=== PATIENT | female | born 1950 | race Caucasian/White ===

== ENCOUNTER 2019-06-23 23:55 | Emergency (ER) | payer MEDICARE ==
--- NOTE | 2019-06-24 00:31 | ERPHSYRPT ---
- History of Present Illness Time Seen by Provider: 06/24/19 00:20 Historian: patient Exam Limitations: no limitations Patient Subjective Stated Complaint: Abdominal pain Triage Nursing Assessment: Patient brought back to ED via w/c and transferred to bed with assist of 1. Patient A+O X 3. Patient's skin pink, warm and dry. Patient complains of abdominal pain intermittent sharp and stabbing pain for 2 months. Patient states she has seen so many doctors for this issue but gets tired of the doctors so she quits going and trys to ignore the abdominal pain. Patient's abdomen round and soft with BS X 4. Patient denies N/V or diarrhea. Patient states last BM 06/21/19 and she has a hx of constipation. Physician History: 69 y/o white female presents with 2 month h/o generalized abd pain. no n/v/d. pt s/p cholecystectomy. pt denies cp, denies soa Timing/Duration: week(s) (8) Quality: fullness, pressure Abdominal Pain Onset Location: generalized abdomen Pain Radiation: no radiation Severity of Pain-Max: mild Severity of Pain-Current: mild Modifying Factors: Improves With: palpation. Worsens With: coughing, defecating , vomiting Associated Symptoms: No back, No chest pain, No diarrhea, No fever/chills, No nausea, No shortness of breath, No vomiting Previous symptoms: same symptoms as today Allergies/Adverse Reactions: No Known Drug Allergies Allergy (Verified 06/24/19 00:03) Home Medications: Albuterol Sulfate [Albuterol Sulfate Hfa] 8.5 gm IH QID 06/19/13 [History] Atorvastatin Calcium [Lipitor] 20 mg PO DAILY 06/19/13 [History] Clopidogrel Bisulfate 75 mg [PLAVIX 75 MG Tablet] 75 mg PO DAILY 06/19/13 [History] Cyanocobalamin (Vitamin B-12) [Vitamin B-12] 500 mcg PO DAILY 06/19/13 [History] Ergocalciferol (Vitamin D2) [Vitamin D] 50,000 unit PO WEEKLY 06/19/13 [History] Fenofibrate,Micronized 145 mg* [Tricor 145 MG] 145 mg PO DAILY 06/19/13 [ History] Fluticasone/Salmeterol [Advair Hfa 115-21 Mcg Inhaler] 8 gm IH BID 06/19/13 [ History] Insulin Glargine [Lantus Insulin] 10 unit SQ TID 06/19/13 [History] Multivits W-Fe,Other Min/Lut [Centrum Silver Ultra Women Tab] 1 each PO DAILY [History] Niacin 100 mg PO DAILY 06/19/13 [History] Nitroglycerin 0.4 mg Tablet [Nitrostat 0.4 MG Tablet] 0.4 mg SL UD [History] Alendronate Sodium [Fosamax] 70 mg PO WEEKLY 03/29/18 [History] Amitriptyline HCl 25 mg [Elavil 25 mg] 25 mg PO HS 03/29/18 [History] Aspirin 81 mg PO DAILY 03/29/18 [History] Famotidine 10 mg PO DAILY 03/29/18 [History] Fluoxetine HCl [Prozac] 40 mg PO DAILY 03/29/18 [History] Isosorbide Mononitrate 30 mg [Imdur 30 MG] 30 mg PO DAILY 03/29/18 [History ] Levothyroxine Sodium [Unithroid] 175 mcg PO DAILY 03/29/18 [History] Liraglutide [Victoza 2-Osvaldo] 40 units SQ DAILY 03/29/18 [History] Metformin HCl 500 mg [Glucophage 500 MG] 500 mg PO DAILY 03/29/18 [History ] Methocarbamol 500 mg [Robaxin 500 MG] 500 mg PO TID 03/29/18 [History] Montelukast Sodium 10 mg [Singulair 10 MG] 10 mg PO DAILY 03/29/18 [History] PANTOPRAZOLE 40 mg Tablet [Protonix 40MG Tablet] 40 mg PO QAM 03/29/18 [ History] Sacubitril/Valsartan [Entresto 24 mg-26 mg Tablet] 1 each PO BID 03/29/18 [ History] Hx Tetanus, Diphtheria Vaccination/Date Given: Yes (UNKNOWN) Hx Influenza Vaccination/Date Given: Yes Hx Pneumococcal Vaccination/Date Given: Yes Immunizations Up to Date: Yes - Review of Systems Constitutional: No Symptoms Eyes: No Symptoms Ears, Nose, & Throat: No Symptoms Respiratory: No Symptoms Cardiac: No Symptoms Abdominal/Gastrointestinal: Abdominal Pain, No Nausea, No Vomiting, No Diarrhea , No Constipation Genitourinary Symptoms: No Symptoms Musculoskeletal: No Symptoms Skin: No Symptoms Neurological: No Symptoms Psychological: No Symptoms Endocrine: No Symptoms Hematologic/Lymphatic: No Symptoms Immunological/Allergic: No Symptoms All Other Systems: Reviewed and Negative - Past Medical History Pertinent Past Medical History: Yes Neurological History: Migraines ENT History: No Pertinent History Cardiac History: Angina, Coronary Artery Disease, Myocardial Infarction ([place]), Peripheral Vascular Disease Respiratory History: No Pertinent History Endocrine Medical History: Diabetes Type II Musculoskeletal History: Arthritis, Fractures GI Medical History: No Pertinent History History: No Pertinent History Psycho-Social History: Depression Female Reproductive Disorders: No Pertinent History, Cervical Cancer - Past Surgical History Past Surgical History: Yes Neuro Surgical History: No Pertinent History Cardiac: CABG, Cardiac Catheterization, Cardiac Stent, Vascular Surgery Respiratory: No Pertinent History Gastrointestinal: Cholecystectomy Genitourinary: No Pertinent History Musculoskeletal: No Pertinent History Female Surgical History: Hysterectomy - Social History Smoking Status: Current every day smoker How long have you smoked: years Exposure to second hand smoke: Yes Drug Use: none Patient Lives Alone: No - Female History Hx Last Menstrual Period: Hysterectomy Hx Now: No - Nursing Vital Signs Nursing Vital Signs: Initial Vital Signs Temperature 98.0 F 06/24/19 00:04 Pulse Rate 85 06/24/19 00:04 Respiratory Rate 18 06/24/19 00:04 Blood Pressure 123/70 06/24/19 00:04 O2 Sat by Pulse Oximetry 95 06/24/19 00:04 Pain Scale Pain Intensity 7 - Physical Exam General Appearance: mild distress, alert, anxiety Eye Exam: PERRL/EOMI, eyes nml inspection Ears, Nose, Throat Exam: normal ENT inspection, moist mucous membranes Neck Exam: normal inspection, non-tender, supple, full range of motion Respiratory Exam: normal breath sounds, lungs clear, airway intact, No chest tenderness, No respiratory distress Cardiovascular Exam: regular rate/rhythm, normal heart sounds, normal peripheral pulses Gastrointestinal/Abdomen Exam: soft, normal bowel sounds, tenderness (mild diffuse), No distention, No mass, No guarding, No rebound Pelvic Exam: not done Rectal Exam: not done Back Exam: normal inspection, normal range of motion, vertebral tenderness, No CVA tenderness Extremity Exam: normal inspection, normal range of motion, pelvis stable Neurologic Exam: alert, oriented x 3, cooperative, barrow worker II-XII nml as tested Skin Exam: normal color, warm, dry Lymphatic Exam: No adenopathy SpO2 Interpretation: normal SpO2: 95 O2 Delivery: Room Air - Course Nursing assessment & vital signs reviewed: Yes Ordered Tests: Active Orders 24 hr Category Date Time Status IV Insertion STAT Care 06/24/19 00:31 Active ABDOMEN AND PELVIS W/0 CONTRAS [CT] Stat Exams 06/24/19 00:50 Taken AMYLASE Stat Lab 06/24/19 00:30 Completed CBC W DIFF Stat Lab 06/24/19 00:30 Completed CMP Stat Lab 06/24/19 00:30 Completed LIPASE Stat Lab 06/24/19 00:30 Completed Lactic Acid Stat Lab 06/24/19 00:50 Completed Lactic Acid Stat Lab 06/24/19 03:08 Results UA W/RFX UR CULTURE Stat Lab 06/24/19 00:30 Completed Medication Summary Discontinued Medications Generic Name Dose Route Start Last Admin Trade Name Lisette PRN Reason Stop Dose Admin Sodium Chloride 500 mls @ 500 mls/hr 06/24/19 02:27 06/24/19 03:53 Sodium Chloride 0.9% 500 Ml IV 06/24/19 03:26 Infused .Q1H ONE Infusion Sodium Chloride Confirm 06/24/19 02:31 Sodium Chloride 0.9% 500 Ml Administered 06/24/19 02:32 Dose 500 mls @ ud IV .STK-MED ONE Morphine Sulfate 2 mg 06/24/19 02:26 06/24/19 02:37 Morphine Sulfate 2 Mg Inj IV 06/24/19 02:27 2 mg STAT ONE Administration Morphine Sulfate Confirm 06/24/19 02:31 Morphine Sulfate 2 Mg Inj Administered 06/24/19 02:32 Dose 2 mg .ROUTE .STK-MED ONE Ondansetron HCl 4 mg 06/24/19 02:26 06/24/19 02:37 Zofran 4 Mg/2 Ml Vial IV 06/24/19 02:27 4 mg STAT ONE Administration Ondansetron HCl Confirm 06/24/19 02:30 Zofran 4 Mg/2 Ml Vial Administered 06/24/19 02:31 Dose 4 mg .ROUTE .STK-MED ONE Lab/Rad Data: Laboratory Result Diagrams 06/24/19 00:30 06/24/19 00:30 Laboratory Results 06/24/19 06/24/19 06/24/19 Range/Units 03:08 00:50 00:30 WBC (4.0-10.5) K/mm3 RBC (4.1-5.4) M/mm3 Hgb (12.0-16.0) gm/dl Hct (35-47) % MCV (78-100) fl MCH (26-32) pg MCHC (32-36) g/dl RDW (11.5-14.0) % Plt Count (150-450) K/mm3 MPV (6-9.5) fl Gran % (36.0-66.0) % Eos # (Auto) (0-0.5) Absolute Lymphs (auto) (1.0-4.6) Absolute Monos (auto) (0.0-1.3) Lymphocytes % (24.0-44.0) % Monocytes % (0.0-12.0) % Eosinophils % (0.00-5.0) % Basophils % (0.0-0.4) % Absolute Granulocytes (1.4-6.9) Basophils # (0-0.4) Sodium (137-145) mmol/L Potassium (3.5-5.1) mmol/L Chloride (98-107) mmol/L Carbon Dioxide (22-30) mmol/L Anion Gap (5-15) MEQ/L BUN (7-17) mg/dL Creatinine (0.52-1.04) mg/dL Estimated GFR ML/MIN Glucose (74-106) mg/dL Lactic Acid 2.4 H 3.0 H (0.4-2.0) Calcium (8.4-10.2) mg/dL Total Bilirubin (0.2-1.3) mg/dL AST (14-36) U/L ALT (0-35) U/L Alkaline Phosphatase (38-126) U/L Serum Total Protein (6.3-8.2) g/dL Albumin (3.5-5.0) g/dL Amylase (30-110) U/L Lipase (23-300) U/L Urine Color STRAW (YELLOW) Urine Appearance CLEAR (CLEAR) Urine pH 6.0 (5-6) Ur Specific [place] 1.005 (1.005-1.025) Urine Protein NEGATIVE (Negative) Urine Ketones NEGATIVE (NEGATIVE) Urine Blood NEGATIVE (0-5) Lucas/ul Urine Nitrite NEGATIVE (NEGATIVE) Urine Bilirubin NEGATIVE (NEGATIVE) Urine Urobilinogen NEGATIVE (0-1) mg/dL Ur Leukocyte Esterase NEGATIVE (NEGATIVE) Urine WBC (Auto) NONE (0-5) /HPF Urine RBC (Auto) NONE (0-2) /HPF U Epithel Cells (Auto) RARE (FEW) /HPF Urine Bacteria (Auto) NONE (NEGATIVE) /HPF Urine Mucus (Auto) SLIGHT (NEGATIVE) /HPF Urine Culture Reflexed NO (NO) Urine Glucose NEGATIVE (NEGATIVE) mg/dL 06/24/19 06/24/19 Range/Units 00:30 00:30 WBC 8.5 (4.0-10.5) K/mm3 RBC 4.12 (4.1-5.4) M/mm3 Hgb 12.4 (12.0-16.0) gm/dl Hct 39.0 (35-47) % MCV 94.7 (78-100) fl MCH 30.1 (26-32) pg MCHC 31.8 L (32-36) g/dl RDW 17.3 H (11.5-14.0) % Plt Count 339 (150-450) K/mm3 MPV 10.4 H (6-9.5) fl Gran % 62.4 (36.0-66.0) % Eos # (Auto) 0.17 (0-0.5) Absolute Lymphs (auto) 2.34 (1.0-4.6) Absolute Monos (auto) 0.63 (0.0-1.3) Lymphocytes % 27.6 (24.0-44.0) % Monocytes % 7.4 (0.0-12.0) % Eosinophils % 2.0 (0.00-5.0) % Basophils % 0.6 (0.0-0.4) % Absolute Granulocytes 5.28 (1.4-6.9) Basophils # 0.05 (0-0.4) Sodium 138 (137-145) mmol/L Potassium 3.8 (3.5-5.1) mmol/L Chloride 101 (98-107) mmol/L Carbon Dioxide 26 (22-30) mmol/L Anion Gap 14.0 (5-15) MEQ/L BUN 11 (7-17) mg/dL Creatinine 0.82 (0.52-1.04) mg/dL Estimated GFR > 60.0 ML/MIN Glucose 181 H (74-106) mg/dL Lactic Acid (0.4-2.0) Calcium 9.5 (8.4-10.2) mg/dL Total Bilirubin 0.30 (0.2-1.3) mg/dL AST 24 (14-36) U/L ALT 12 (0-35) U/L Alkaline Phosphatase 87 (38-126) U/L Serum Total Protein 7.8 (6.3-8.2) g/dL Albumin 4.5 (3.5-5.0) g/dL Amylase 93 (30-110) U/L Lipase 80 (23-300) U/L Urine Color (YELLOW) Urine Appearance (CLEAR) Urine pH (5-6) Ur Specific [place] (1.005-1.025) Urine Protein (Negative) Urine Ketones (NEGATIVE) Urine Blood (0-5) Lucas/ul Urine Nitrite (NEGATIVE) Urine Bilirubin (NEGATIVE) Urine Urobilinogen (0-1) mg/dL Ur Leukocyte Esterase (NEGATIVE) Urine WBC (Auto) (0-5) /HPF Urine RBC (Auto) (0-2) /HPF U Epithel Cells (Auto) (FEW) /HPF Urine Bacteria (Auto) (NEGATIVE) /HPF Urine Mucus (Auto) (NEGATIVE) /HPF Urine Culture Reflexed (NO) Urine Glucose (NEGATIVE) mg/dL - Progress Progress: improved, re-examined Progress Note: 06/24/19 04:20 pts pain sig improved. ct scan abd/pelvis-no acute process. no cp, no soa. 06/24/19 04:21 Counseled pt/family regarding: lab results, diagnosis, need for follow-up, rad results - Departure Departure Disposition: Home Clinical Impression: Abdominal pain Condition: Stable Critical Care Time: No Referrals: LYNNE SCHNEIDER [Primary Care Provider] - Additional Instructions: clear to full liquid diet. folllow up with primary doctor for further management. return to ED if symptoms worsen
[2019-06-24 00:49] LABS: BASOPHIL % 0.6 % (0.0-0.4); Basophil (Absolute #) 0.05 (0-0.4); Eosinophil (Absolute #) 0.17 (0-0.5); Granulocyte Absolute (ANC) 5.28 (1.4-6.9); Granulocytes % 62.4 % (36.0-66.0); Hemoglobin 12.4 gm/dl (12.0-16.0); Lymphocyte (Absolute #) 2.34 (1.0-4.6); Lymphocytes % 27.6 % (24.0-44.0); Mean Cell Volume 94.7 fl (78-100); Mean Corpuscular Hemoglobin 30.1 pg (26-32); Mean Corpuscular Hgb Concent. 31.8 g/dl (32-36); Mean Platelet Volume 10.4 fl (6-9.5); Monocyte (Absolute #) 0.63 (0.0-1.3); Monocytes % 7.4 % (0.0-12.0); Platelet Count 339 K/mm3 (150-450); Red Blood Count 4.12 M/mm3 (4.1-5.4); Red Cell Distribution Width 17.3 % (11.5-14.0); White Blood Count 8.5 K/mm3 (4.0-10.5)
[2019-06-24 00:53] LABS: ALBUMIN 4.5 g/dL (3.5-5.0); ALKALINE PHOSPHATASE 87 U/L (38-126); AMYLASE 93 U/L (30-110); BLOOD UREA NITROGEN 11 mg/dL (7-17); CHLORIDE 101 mmol/L (98-107); Calcium 9.5 mg/dL (8.4-10.2); Carbon Dioxide 26 mmol/L (22-30); Creatinine 1 0.82 mg/dL (0.52-1.04); Glucose 181 mg/dL (74-106); LIPASE 80 U/L (23-300); Potassium 3.8 mmol/L (3.5-5.1); SGOT/AST 24 U/L (14-36); SGPT/ALT 12 U/L (0-35); SODIUM 138 mmol/L (137-145); Total Protein 7.8 g/dL (6.3-8.2)
[2019-06-24 00:58] LABS: Appearance CLEAR (CLEAR); Bilirubin NEGATIVE (NEGATIVE); Blood NEGATIVE Ery/ul (0-5); Epithelial Cells RARE /HPF (FEW); Glucose NEGATIVE (NEGATIVE); Ketones NEGATIVE (NEGATIVE); Leukocyte Esterase NEGATIVE (NEGATIVE); Mucus SLIGHT /HPF (NEGATIVE); Nitrite NEGATIVE (NEGATIVE); Protein,Urine Dip NEGATIVE (Negative); Specific Gravity 1.005 (1.005-1.025); Urobilinogen NEGATIVE mg/dL (0-1)
[2019-06-24] MEDS ORDERED: Zofran 4 MG/2 ML VIAL ONE (02:30)
[2019-06-24] MEDS ORDERED: MORPHINE SULFATE 2 MG INJ ONE (02:31)
[2019-06-24] MEDS ORDERED: Sodium Chloride 0.9% 500 ML 500 ML IV ONE (02:31)
[2019-06-24] MEDS: Zofran 4 MG/2 ML VIAL IV ONE (02:37)
[2019-06-24] MEDS: Sodium Chloride 0.9% 500 ML 500 ML IV ONE (02:37)
[2019-06-24] MEDS: MORPHINE SULFATE 2 MG INJ IV ONE (02:37)
[2019-06-24 03:17] LABS: Lactic Acid 2.4 (0.4-2.0)
[2019-06-24 04:41] VITALS: BP 109/71; PULSE 81; O2SAT 98
--- NOTE | 2019-06-24 09:38 | XRAY ---
Indication: Right upper quadrant pain 2 months. Multiple contiguous axial images obtained through the abdomen and pelvis without contrast as ordered. Comparison: None Lung bases demonstrates mild bilateral fibrosis/scarring. No infiltrate or effusion. Heart is not enlarged with partially visualized pacer lead. Small hiatal hernia. Stomach is distended with food/fluid and radiopacity presumed ingested medication or bismuth. Noncontrasted stomach and bowel loops appear nonobstructed. Normal appendix. There is mild diffuse scattered colonic fecal debris throughout including rectum. Previous cholecystectomy and hysterectomy. No free fluid/air. 9 mm round right lobe hepatic hypodense lesion adjacent to the gallbladder fossa, cyst versus hemangioma. Tiny hepatic/splenic calcified granulomas. 3-4 mm nonobstructing left renal calculus. Remaining liver, gallbladder, pancreas, adrenal glands, kidneys, ureters, and bladder appear unremarkable for noncontrast exam. Heavy scattered vascular calcifications, especially left iliac vessels. Osseous structures demonstrate mild degenerative changes throughout the spine and both hips. Impression: 1. Diffuse fecal stasis without obstruction. 2. Nonobstructing left renal micro-calculus. 3. Subcentimeter round hepatic hypodense lesion, cyst versus hemangioma. CT with contrast exam may yield further information if clinically warranted. 4. 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 Comment: Preliminary interpretation was made by [facility] who does not report incidental hiatal hernia, fecal stasis, and hepatic lesion. CT DI 22.19
== END 2019-06-24 04:38 | disposition home or self-care (01) ==
LOC: ED 23:55
DX: R10.9 Unspecified abdominal pain (principal)
CPT/HCPCS: 36000; 36415; 74176; 80053; 81001; 82150; 83605; 83690; 85025; 96360; 96374; 96375; 99284; J2270; J2405

== ENCOUNTER 2019-08-13 13:02 | Emergency (ER) | payer MEDICARE ==
[2019-08-13] MEDS ORDERED: Sodium Chloride 0.9% 1000 ML 1,000 ML IV STA (13:05)
[2019-08-13] MEDS ORDERED: MORPHINE SULFATE 4 MG INJ ONE ×2 (13:17→13:38)
[2019-08-13] MEDS ORDERED: Sodium Chloride 0.9% 1000 ML 1,000 ML ONE (13:17)
[2019-08-13] MEDS: MORPHINE SULFATE 4 MG INJ IV ONE ×2 (13:18→13:41)
[2019-08-13 13:37] VITALS: O2SAT 95
--- NOTE | 2019-08-13 13:44 | ERPHSYRPT ---
- History of Present Illness Time Seen by Provider: 08/13/19 13:41 Source: patient, EMS Exam Limitations: no limitations Patient Subjective Stated Complaint: woke up to pain in her right medial chest, was lightheaded, pain went down the right arm, cardiac stent placed on by Dr. Aden, hx of CHF, reports losing 20 lbs in one month, states that she hasn't had an appetite for the past couple of months, diabetic and is unable to test due to no strips, pt states that she was feeling this way at [facility] with no relief Triage Nursing Assessment: Pt arrived to the ER via EMS, BP was 63/32, and is now 102/58 after a bolus, pulses normal, heart sounds irregular, no edema, stating that she feels better now that her pressure is going up, had 2 bowel movements this morning and usually has problems going Physician History: Mrs Stockton is a 69 years old female woke up to pain in her right medial chest , was lightheaded, pain went down the right arm, cardiac stent placed on by Dr. Aden, hx of CHF, reports losing 20 lbs in one month, states that she hasn't had an appetite for the past couple of months, diabetic and is unable to test due to no strips, pt states that she was feeling this way at [facility] with no relief Timing/Duration: today Activities at Onset: none Quality: tightness Location: substernal Chest Pain Radiation: arm Severity of Pain-Max: moderate Severity of Pain-Current: mild Modifying Factors: Improves With: nothing Nitro Today/Relief: no nitro taken today Aspirin Treatment Today: no aspirin today Associated Symptoms: shortness of breath, weakness Prior Chest Pain/Cardiac Workup: angina, cardiac cath, heart attack Allergies/Adverse Reactions: No Known Drug Allergies Allergy (Verified 08/13/19 13:37) Home Medications: Albuterol Sulfate [Albuterol Sulfate Hfa] 8.5 gm IH QID PRN 06/19/13 [History] Atorvastatin Calcium [Lipitor] 80 mg PO DAILY 06/19/13 [History] Clopidogrel Bisulfate 75 mg [PLAVIX 75 MG Tablet] 75 mg PO DAILY 06/19/13 [History] Ergocalciferol (Vitamin D2) [Vitamin D] 50,000 unit PO WEEKLY 06/19/13 [History] Fenofibrate,Micronized 145 mg* [Tricor 145 MG] 145 mg PO DAILY 06/19/13 [ History] Alendronate Sodium [Fosamax] 70 mg PO WEEKLY 03/29/18 [History] Aspirin 325 mg PO DAILY 03/29/18 [History] Fluoxetine HCl [Prozac] 40 mg PO DAILY 03/29/18 [History] Isosorbide Mononitrate 30 mg [Imdur 30 MG] 30 mg PO DAILY 03/29/18 [History ] Levothyroxine Sodium [Unithroid] 150 mcg PO DAILY 03/29/18 [History] PANTOPRAZOLE 40 mg Tablet [Protonix 40MG Tablet] 40 mg PO QAM 03/29/18 [ History] Sacubitril/Valsartan [Entresto 24 mg-26 mg Tablet] 1 each PO BID 03/29/18 [ History] Carvedilol 3.125 mg [Coreg 3.125 MG] 3.125 mg PO BID 08/13/19 [History] Diphenhydramine HCl 25 mg [Benadryl 25 mg Capsule] 25 mg PO HS 08/13/19 [ History] Insulin Glargine,Hum.rec.anlog [[place] Avelar] 40 units SQ HS 08/13/19 [ History] Insulin Lispro [Humalog] 1 unit SQ QID 08/13/19 [History] Melatonin 10 mg PO DAILY 08/13/19 [History] Morphine Sulfate Cr 15 mg [Ms Contin 15 MG] 15 mg PO Q6H PRN 08/13/19 [ History] Nitroglycerin [Nitromist] 1 spray SQ UD PRN 08/13/19 [History] Hx Tetanus, Diphtheria Vaccination/Date Given: Yes (UNKNOWN) Hx Influenza Vaccination/Date Given: Yes Hx Pneumococcal Vaccination/Date Given: Yes - Review of Systems Constitutional: No Fever, No Chills Eyes: No Symptoms Ears, Nose, & Throat: No Symptoms Respiratory: Dyspnea on Exertion ([place]), No Cough, No Dyspnea Cardiac: Chest Pain, No Edema, No Syncope Abdominal/Gastrointestinal: No Abdominal Pain, No Nausea, No Vomiting, No Diarrhea Genitourinary Symptoms: No Dysuria Musculoskeletal: No Back Pain, No Neck Pain Skin: No Rash Neurological: No Dizziness, No Focal Weakness, No Sensory Changes Psychological: No Symptoms Endocrine: No Symptoms All Other Systems: Reviewed and Negative - Past Medical History Pertinent Past Medical History: Yes Neurological History: Migraines ENT History: No Pertinent History Cardiac History: Angina, Congestive Heart Failure, Coronary Artery Disease, Myocardial Infarction ([place]), Peripheral Vascular Disease Respiratory History: No Pertinent History Endocrine Medical History: Diabetes Type II Musculoskeletal History: Arthritis, Fractures GI Medical History: No Pertinent History History: No Pertinent History Psycho-Social History: Depression Female Reproductive Disorders: No Pertinent History, Cervical Cancer - Past Surgical History Past Surgical History: Yes Neuro Surgical History: No Pertinent History Cardiac: CABG, Cardiac Catheterization, Cardiac Stent, Vascular Surgery Respiratory: No Pertinent History Gastrointestinal: Cholecystectomy Genitourinary: No Pertinent History Musculoskeletal: No Pertinent History Female Surgical History: Hysterectomy Other Surgical History: thyroid removed - Social History Smoking Status: Current every day smoker How long have you smoked: years Exposure to second hand smoke: Yes Drug Use: none Patient Lives Alone: No - Nursing Vital Signs Nursing Vital Signs: Initial Vital Signs Temperature 97.7 F 08/13/19 13:05 Pulse Rate 80 08/13/19 13:05 Respiratory Rate 17 08/13/19 13:05 Blood Pressure 83/50 08/13/19 13:05 O2 Sat by Pulse Oximetry 95 08/13/19 13:05 Pain Scale Pain Intensity 5 - Physical Exam General Appearance: no apparent distress, alert Eye Exam: PERRL/EOMI, eyes nml inspection Ears, Nose, Throat Exam: normal ENT inspection, moist mucous membranes Neck Exam: normal inspection, non-tender, supple Respiratory Exam: normal breath sounds, lungs clear, diminished breath sounds, crackles/rales, rhonchi, No respiratory distress Cardiovascular Exam: regular rate/rhythm, tachycardia, No edema Gastrointestinal/Abdomen Exam: soft, No tenderness, No mass Back Exam: normal inspection, No CVA tenderness, No vertebral tenderness Extremity Exam: normal inspection, normal range of motion Neurologic Exam: alert, oriented x 3, cooperative, normal mood/affect, nml cerebellar function, sensation nml, No motor deficits Skin Exam: normal color, warm, dry Lymphatic Exam: No adenopathy SpO2: 95 - Course Nursing assessment & vital signs reviewed: Yes EKG Interpreted by Me: Left Bundle Branch Block, Non-specific ST Changes Rhythm Strip: Normal Sinus Rhythm - Radiology Exams Chest X-ray Interpretation: Reviewed by me (CHF changes) Ordered Tests: Active Orders 24 hr Category Date Time Status Oxygen-ED Only Nasal Cannula 2 lpm Care 08/13/19 13:05 Active CHEST 1 VIEW (PORTABLE) Stat Exams 08/13/19 13:25 Taken CBC W DIFF Stat Lab 08/13/19 13:22 Completed CMP Stat Lab 08/13/19 13:22 Completed NT PRO BNP Stat Lab 08/13/19 13:22 Completed TROPONIN Q3H Lab 08/13/19 13:22 Completed TROPONIN Q3H Lab 08/13/19 16:15 Ordered TROPONIN Q3H Lab 08/13/19 19:15 Ordered TROPONIN Q3H Lab 08/13/19 22:15 Ordered TROPONIN Q3H Lab 08/14/19 01:15 Ordered Medication Summary Discontinued Medications Generic Name Dose Route Start Last Admin Trade Name Freq PRN Reason Stop Dose Admin Sodium Chloride 1,000 mls @ 999 mls/hr 08/13/19 13:05 08/13/19 13:18 Sodium Chloride 0.9% 1000 Ml IV 08/13/19 14:05 999 mls/hr .Q1H1M STA Administration Sodium Chloride Confirm 08/13/19 13:17 Sodium Chloride 0.9% 1000 Ml Administered 08/13/19 13:18 Dose 1,000 mls @ ud .ROUTE .STK-MED ONE Morphine Sulfate 4 mg 08/13/19 13:05 08/13/19 13:41 Morphine Sulfate 4 Mg Inj IV 08/13/19 13:06 4 mg STAT ONE Administration Morphine Sulfate Confirm 08/13/19 13:17 Morphine Sulfate 4 Mg Inj Administered 08/13/19 13:18 Dose 4 mg .ROUTE .STK-MED ONE Morphine Sulfate Confirm 08/13/19 13:38 Morphine Sulfate 4 Mg Inj Administered 08/13/19 13:39 Dose 4 mg .ROUTE .STK-MED ONE Lab/Rad Data: Laboratory Result Diagrams 08/13/19 13:22 08/13/19 13:22 Laboratory Results 08/13/19 08/13/19 08/13/19 Range/Units 13:22 13:22 13:22 WBC 11.0 H (4.0-10.5) K/mm3 RBC 4.00 L (4.1-5.4) M/mm3 Hgb 12.1 (12.0-16.0) gm/dl Hct 38.5 (35-47) % MCV 96.3 (78-100) fl MCH 30.2 (26-32) pg MCHC 31.4 L (32-36) g/dl RDW 16.6 H (11.5-14.0) % Plt Count 402 (150-450) K/mm3 MPV 9.8 H (6-9.5) fl Gran % 87.9 H (36.0-66.0) % Eos # (Auto) 0.02 (0-0.5) Absolute Lymphs (auto) 0.86 L (1.0-4.6) Absolute Monos (auto) 0.41 (0.0-1.3) Lymphocytes % 7.9 L (24.0-44.0) % Monocytes % 3.7 (0.0-12.0) % Eosinophils % 0.2 (0.00-5.0) % Basophils % 0.3 (0.0-0.4) % Absolute Granulocytes 9.63 H (1.4-6.9) Basophils # 0.03 (0-0.4) Sodium 140 (137-145) mmol/L Potassium 4.2 (3.5-5.1) mmol/L Chloride 105 (98-107) mmol/L Carbon Dioxide 25 (22-30) mmol/L Anion Gap 15.2 H (5-15) MEQ/L BUN 12 (7-17) mg/dL Creatinine 0.84 (0.52-1.04) mg/dL Estimated GFR > 60.0 ML/MIN Glucose 282 H (74-106) mg/dL Calcium 8.7 (8.4-10.2) mg/dL Total Bilirubin 0.40 (0.2-1.3) mg/dL AST 30 (14-36) U/L ALT 9 (0-35) U/L Alkaline Phosphatase 64 (38-126) U/L Troponin I 1.630 H* (0.000-0.034) ng/mL NT-Pro-B Natriuret Pep 384 (0-900) pg/mL Serum Total Protein 6.8 (6.3-8.2) g/dL Albumin 3.7 (3.5-5.0) g/dL - Progress Progress: improved Air Movement: good Blood Culture(s) Obtained: No Antibiotics given: No Discussed with Dr.: Other (Dr Sanderson ([facility] ER)) Will see patient in: ED ([facility]) - Departure Departure Disposition: Transfer Clinical Impression: Non-ST elevation NM (NSTEMI) Acute CHF (congestive heart failure) Qualifiers: Heart failure type: diastolic Qualified Code(s): I50.31 - Acute diastolic ( congestive) heart failure Condition: Fair Critical Care Time: Yes Critical Care Time(excluding separately billable procedures): Critical 30-74 mins Referrals: LYNNE SCHNEIDER [Primary Care Provider] - Instructions: Heart Failure
[2019-08-13 14:10] LABS: Absolute Neutrophil Ct (ANC) 9.63 (1.4-6.9); BASOPHIL % 0.3 % (0.0-0.4); Basophil (Absolute #) 0.03 (0-0.4); Eosinophil % 0.2 % (0.00-5.0); Eosinophil (Absolute #) 0.02 (0-0.5); Hematocrit 38.5 % (35-47); Hemoglobin 12.1 gm/dl (12.0-16.0); Lymphocyte (Absolute #) 0.86 (1.0-4.6); Lymphocytes % 7.9 % (24.0-44.0); Mean Cell Volume 96.3 fl (78-100); Mean Corpuscular Hgb Concent. 31.4 g/dl (32-36); Mean Platelet Volume 9.8 fl (6-9.5); Monocyte (Absolute #) 0.41 (0.0-1.3); Monocytes % 3.7 % (0.0-12.0); Neutrophil % 87.9 % (36.0-66.0); Platelet Count 402 K/mm3 (150-450); Red Cell Distribution Width 16.6 % (11.5-14.0)
[2019-08-13 14:11] LABS: ALBUMIN 3.7 g/dL (3.5-5.0); ALKALINE PHOSPHATASE 64 U/L (38-126); ANION GAP 15.2 MEQ/L (5-15); BLOOD UREA NITROGEN 12 mg/dL (7-17); CHLORIDE 105 mmol/L (98-107); Calcium 8.7 mg/dL (8.4-10.2); Carbon Dioxide 25 mmol/L (22-30); Creatinine 1 0.84 mg/dL (0.52-1.04); Glucose 282 mg/dL (74-106); Mean Corpuscular Hemoglobin 30.2 pg (26-32); NT PRO BNP 384 pg/mL (0-900); Potassium 4.2 mmol/L (3.5-5.1); SGOT/AST 30 U/L (14-36); SGPT/ALT 9 U/L (0-35); SODIUM 140 mmol/L (137-145); Total Protein 6.8 g/dL (6.3-8.2)
[2019-08-13 15:05] VITALS: BP 88/54; PULSE 85
--- NOTE | 2019-08-13 20:47 | XRAY ---
Indication: Chest pain. Comparison: June 19, 2013. Portable chest again hyperinflated with chronic lung markings. No focal infiltrate, consolidation, large effusion. Heart is not enlarged again with CABG surgery. New left AICD without complications. Bony thorax intact again with mild osteopenia and degenerative changes. Impression: Nonacute chest with chronic features.
== END 2019-08-13 15:03 | disposition short-term general hospital (02) ==
LOC: ED 13:02
DX: I21.4 Non-ST elevation (NSTEMI) myocardial infarction (principal); I50.31 Acute diastolic (congestive) heart failure
CPT/HCPCS: 36415; 71045; 80053; 83880; 84484; 85025; 96360; 96374; 99285; 99291; J2270

== ENCOUNTER 2020-12-23 17:05 | Emergency (ER) | payer MEDICARE ==
--- NOTE | 2020-12-23 17:23 | ERPHSYRPT ---
- History of Present Illness Time Seen by Provider: 12/23/20 17:17 Source: patient Exam Limitations: no limitations Physician History: pt has hx of PVD left LE for many months and prior bypass grafts for this as well as CABG for CAD ( no chest pain or SOBreath today, but notes increased leg pain 10 out of 10 today,. chronic left leg redness and started clindamycin by [facility] for possible left leg infection. has decreased sensation at the toes chronic per pt, and Diabetes. multiple ulcers large left martínez, and small at toes 1-3 . Method of Injury: other (no known direct injury) Occurred: days ago Quality: constant, aching, throbbing Severity of Pain-Max: severe Severity of Pain-Current: severe Lower Extremities Pain: leg: left, foot: left, 1st toe: left, 2nd toe: left, 3rd toe: left, 4th toe: left, 5th toe: left Modifying Factors: Improves With: movement Allergies/Adverse Reactions: No Known Drug Allergies Allergy (Verified 12/23/20 17:09) Home Medications: Albuterol Sulfate [Albuterol Sulfate Hfa] 8.5 gm IH QID PRN 06/19/13 [History] Atorvastatin Calcium [Lipitor] 80 mg PO DAILY 06/19/13 [History] Ergocalciferol (Vitamin D2) [Vitamin D] 50,000 unit PO WEEKLY 06/19/13 [History] Alendronate Sodium [Fosamax] 70 mg PO WEEKLY 03/29/18 [History] Aspirin 81 mg PO DAILY 03/29/18 [History] Fluoxetine HCl [Prozac] 20 mg PO DAILY 03/29/18 [History] Levothyroxine Sodium [Unithroid] 150 mcg PO DAILY 03/29/18 [History] Sacubitril/Valsartan [Entresto 24 mg-26 mg Tablet] 1 each PO DAILY 03/29/18 [History] Carvedilol 3.125 mg [Coreg 3.125 MG] 3.125 mg PO DAILY 08/13/19 [History] Nitroglycerin [Nitromist] 1 spray SQ UD PRN 08/13/19 [History] Famotidine 20 mg [Pepcid 20 MG] 1 tab PO DAILY 12/23/20 [History] Ferrous Sulfate 325 mg [Feosol 325 mg] 1 tab PO DAILY 12/23/20 [History] Glucosamine Sulfate Dipot Chlr [Glucosamine] 1,500 mg PO DAILY 12/23/20 [History] Metformin HCl 500 mg [Glucophage 500 MG] 1 tab PO DAILY 12/23/20 [History] Hx Tetanus, Diphtheria Vaccination/Date Given: Yes (UNKNOWN) Hx Influenza Vaccination/Date Given: Yes Hx Pneumococcal Vaccination/Date Given: Yes - Review of Systems Constitutional: No Fever, No Chills Eyes: No Symptoms Ears, Nose, & Throat: No Symptoms Respiratory: No Cough, No Dyspnea Cardiac: No Chest Pain, No Edema, No Syncope Abdominal/Gastrointestinal: No Abdominal Pain, No Nausea, No Vomiting, No Diarrhea Genitourinary Symptoms: No Dysuria Musculoskeletal: No Back Pain, No Neck Pain Skin: Cellulitis, Decubiti, Induration, Other (skin ulcers left leg/foot), No Rash Neurological: No Dizziness, No Focal Weakness, No Sensory Changes Psychological: No Symptoms Endocrine: No Symptoms All Other Systems: Reviewed and Negative - Past Medical History Pertinent Past Medical History: Yes Neurological History: Migraines ENT History: No Pertinent History Cardiac History: Angina, Congestive Heart Failure, Coronary Artery Disease, Myocardial Infarction (MD), Peripheral Vascular Disease Respiratory History: No Pertinent History Endocrine Medical History: Diabetes Type II Musculoskeletal History: Arthritis, Fractures GI Medical History: No Pertinent History History: No Pertinent History Psycho-Social History: Depression Female Reproductive Disorders: No Pertinent History, Cervical Cancer - Past Surgical History Past Surgical History: Yes Neuro Surgical History: No Pertinent History Cardiac: CABG, Cardiac Catheterization, Cardiac Stent, Vascular Surgery Respiratory: No Pertinent History Gastrointestinal: Cholecystectomy Genitourinary: No Pertinent History Musculoskeletal: No Pertinent History Female Surgical History: Hysterectomy Other Surgical History: thyroid removed - Social History Smoking Status: Current every day smoker How long have you smoked: years Exposure to second hand smoke: Yes Drug Use: none Patient Lives Alone: No - Nursing Vital Signs Nursing Vital Signs: Initial Vital Signs Temperature 98.1 F 12/23/20 17:09 Pulse Rate 86 12/23/20 17:09 Respiratory Rate 14 12/23/20 17:09 Blood Pressure 92/44 12/23/20 17:09 O2 Sat by Pulse Oximetry 97 12/23/20 17:09 Pain Scale Pain Intensity 5 - Physical Exam General Appearance: moderate distress, alert Eyes, Ears, Nose, Throat Exam: moist mucous membranes Neck Exam: non-tender, supple Cardiovascular/Respiratory Exam: chest non-tender, normal breath sounds, regular rate/rhythm, no respiratory distress Gastrointestinal/Abdominal Exam: non-tender, guarding Back Exam: normal inspection, No vertebral tenderness Hips Exam: bilateral: non-tender, normal inspection, normal range of motion, no evidence of injury Legs Exam: right leg: non-tender, normal inspection, normal range of motion, no evidence of injury, left leg: pain, soft tissue tenderness, swelling, other (ulcers left) Knees Exam: bilateral knee: non-tender, normal inspection, normal range of motion, no evidence of injury Ankle Exam: bilateral ankle: non-tender, normal inspection, normal range of motion, no evidence of injury Foot Exam: right foot: non-tender, normal inspection, normal range of motion, no evidence of injury, left foot: bone tenderness, infection, pain, soft tissue tenderness, swelling DTR - Lower Extremities Exam: knee (R): 2+, knee (L): 2+, ankle (R): 2+, ankle (L): 2+ Neuro/Tendon Exam: normal motor functions, normal tendon functions Mental Status Exam: alert, oriented x 3, cooperative Skin Exam: warm, dry, other (ulcers left foot/toes/martínez, erythematous skin) - Course Nursing assessment & vital signs reviewed: Yes EKG Interpreted by Me: Sinus Rhythm, NORMAL AXIS, Non-specific ST Changes, Other (bigeminy/IVCD) - Radiology Exams Chest X-ray Interpretation: Reviewed by me, Other (increased venous markings SP CABG) - CT Exams Left Lower Extremity CT Interpretation: Tele-radiologist Report, Other (no nec fasciitis; old vessel occlusions with collaterals) - Radiology Ultrasound Exam Left Venous Lower Extremity Ultrasound: Other (No DVT) Ordered Tests: Active Orders 24 hr Category Date Time Status EKG-ER Only STAT Care 12/23/20 17:26 Active IV Insertion STAT Care 12/23/20 17:26 Active CHEST 1 VIEW (PORTABLE) Stat Exams 12/23/20 18:41 Taken LOWER EXTREMITY WITH CONTRAST [CT] Stat Exams 12/23/20 18:58 Taken LOWER EXTREMITY WO CONTRAST [CT] Stat Exams 12/23/20 17:32 Taken VENOUS UNILAT/LIMITED EXTREMIT [US] Stat Exams 12/23/20 17:34 Taken BNP [NT PRO BNP] Stat Lab 12/23/20 17:30 Completed CBC W DIFF Stat Lab 12/23/20 17:30 Completed CMP Stat Lab 12/23/20 17:30 Completed CULTURE,URINE Stat Lab 12/23/20 18:18 Received CULTURE,WOUND Stat Lab 12/23/20 18:23 Received Lactic Acid Stat Lab 12/23/20 17:34 Completed SED RATE [Erythrocyte Sedimentation Rate] Stat Lab 12/23/20 17:30 Completed TROPONIN Q3H Lab 12/23/20 17:30 Completed TROPONIN Q3H Lab 12/23/20 20:20 Completed TROPONIN Q3H Lab 12/23/20 23:30 Ordered TROPONIN Q3H Lab 12/24/20 02:30 Ordered TROPONIN Q3H Lab 12/24/20 05:30 Ordered UA W/RFX UR CULTURE Stat Lab 12/23/20 18:18 Completed Medication Summary Generic Name Dose Route Start Last Admin Trade Name Freq PRN Reason Stop Dose Admin Sodium Chloride 1,000 mls @ 100 mls/hr 12/23/20 17:30 12/23/20 17:53 Sodium Chloride 0.9% 1000 Ml IV 01/22/21 17:29 100 mls/hr .Q10H JEANNIE Administration Discontinued Medications Generic Name Dose Route Start Last Admin Trade Name Freq PRN Reason Stop Dose Admin Hydromorphone HCl 1 mg 12/23/20 17:26 12/23/20 17:51 Hydromorphone 1 Mg/Ml Injection IV 12/23/20 17:27 1 mg STAT ONE Administration Hydromorphone HCl Confirm 12/23/20 17:50 Hydromorphone 1 Mg/Ml Injection Administered 12/23/20 17:51 Dose 1 mg .ROUTE .STK-MED ONE Vancomycin HCl 1 gm in 200 mls @ 125 mls/hr 12/23/20 17:29 12/23/20 17:55 Vancomycin 1 Gram/200 Ml Bag IV 12/23/20 19:04 125 mls/hr STAT ONE 125 mls/hr Administration Vancomycin HCl Confirm 12/23/20 17:50 Vancomycin 1 Gram/200 Ml Bag Administered 12/23/20 17:51 Dose 1 gm in 200 mls @ ud IV .STK-MED ONE Ondansetron HCl 4 mg 12/23/20 17:26 12/23/20 17:51 Zofran 4 Mg/2 Ml Vial IV 12/23/20 17:27 4 mg STAT ONE Administration Ondansetron HCl Confirm 12/23/20 17:49 Zofran 4 Mg/2 Ml Vial Administered 12/23/20 17:50 Dose 4 mg .ROUTE .STK-MED ONE Lab/Rad Data: Laboratory Result Diagrams 12/23/20 17:30 12/23/20 17:30 Laboratory Results 12/23/20 12/23/20 12/23/20 Range/Units 20:20 18:18 17:34 WBC (4.0-10.5) K/mm3 RBC (4.1-5.4) M/mm3 Hgb (12.0-16.0) gm/dl Hct (35-47) % MCV (78-100) fl MCH (26-32) pg MCHC (32-36) g/dl RDW (11.5-14.0) % Plt Count (150-450) K/mm3 MPV (7.5-11.0) fl Gran % (36.0-66.0) % Eos # (Auto) (0-0.5) Absolute Lymphs (auto) (1.0-4.6) Absolute Monos (auto) (0.0-1.3) Lymphocytes % (24.0-44.0) % Monocytes % (0.0-12.0) % Eosinophils % (0.00-5.0) % Basophils % (0.0-0.4) % Absolute Granulocytes (1.4-6.9) Basophils # (0-0.4) ESR (0-20) mm/hr Sodium (137-145) mmol/L Potassium (3.5-5.1) mmol/L Chloride (98-107) mmol/L Carbon Dioxide (22-30) mmol/L Anion Gap (5-15) MEQ/L BUN (7-17) mg/dL Creatinine (0.52-1.04) mg/dL Estimated GFR ML/MIN Glucose (74-106) mg/dL Lactic Acid 1.7 (0.4-2.0) Calcium (8.4-10.2) mg/dL Total Bilirubin (0.2-1.3) mg/dL AST (14-36) U/L ALT (0-35) U/L Alkaline Phosphatase (38-126) U/L Troponin I < 0.012 (0.000-0.034) ng/mL NT-Pro-B Natriuret Pep (0-900) pg/mL Serum Total Protein (6.3-8.2) g/dL Albumin (3.5-5.0) g/dL Urine Color YELLOW (YELLOW) Urine Appearance SLIGHTLY CLOUDY (CLEAR) Urine pH 5.0 (5-6) Ur Specific [place] 1.018 (1.005-1.025) Urine Protein NEGATIVE (Negative) Urine Ketones NEGATIVE (NEGATIVE) Urine Blood SMALL (0-5) Lucas/ul Urine Nitrite NEGATIVE (NEGATIVE) Urine Bilirubin NEGATIVE (NEGATIVE) Urine Urobilinogen 2 (0-1) mg/dL Ur Leukocyte Esterase SMALL (NEGATIVE) Urine WBC (Auto) 3-5 (0-5) /HPF Urine RBC (Auto) 3-5 (0-2) /HPF U Hyaline Cast (Auto) 6-10 (0-2) /LPF U Epithel Cells (Auto) FEW (FEW) /HPF Urine Bacteria (Auto) RARE (NEGATIVE) /HPF Urine Mucus (Auto) SLIGHT (NEGATIVE) /HPF Urine Culture Reflexed YES (NO) Urine Glucose NEGATIVE (NEGATIVE) mg/dL 12/23/20 12/23/20 12/23/20 Range/Units 17:30 17:30 17:30 WBC (4.0-10.5) K/mm3 RBC (4.1-5.4) M/mm3 Hgb (12.0-16.0) gm/dl Hct (35-47) % MCV (78-100) fl MCH (26-32) pg MCHC (32-36) g/dl RDW (11.5-14.0) % Plt Count (150-450) K/mm3 MPV (7.5-11.0) fl Gran % (36.0-66.0) % Eos # (Auto) (0-0.5) Absolute Lymphs (auto) (1.0-4.6) Absolute Monos (auto) (0.0-1.3) Lymphocytes % (24.0-44.0) % Monocytes % (0.0-12.0) % Eosinophils % (0.00-5.0) % Basophils % (0.0-0.4) % Absolute Granulocytes (1.4-6.9) Basophils # (0-0.4) ESR 27 H (0-20) mm/hr Sodium (137-145) mmol/L Potassium (3.5-5.1) mmol/L Chloride (98-107) mmol/L Carbon Dioxide (22-30) mmol/L Anion Gap (5-15) MEQ/L BUN (7-17) mg/dL Creatinine (0.52-1.04) mg/dL Estimated GFR ML/MIN Glucose (74-106) mg/dL Lactic Acid (0.4-2.0) Calcium (8.4-10.2) mg/dL Total Bilirubin (0.2-1.3) mg/dL AST (14-36) U/L ALT (0-35) U/L Alkaline Phosphatase (38-126) U/L Troponin I < 0.012 (0.000-0.034) ng/mL NT-Pro-B Natriuret Pep 2350 H (0-900) pg/mL Serum Total Protein (6.3-8.2) g/dL Albumin (3.5-5.0) g/dL Urine Color (YELLOW) Urine Appearance (CLEAR) Urine pH (5-6) Ur Specific [place] (1.005-1.025) Urine Protein (Negative) Urine Ketones (NEGATIVE) Urine Blood (0-5) Lucas/ul Urine Nitrite (NEGATIVE) Urine Bilirubin (NEGATIVE) Urine Urobilinogen (0-1) mg/dL Ur Leukocyte Esterase (NEGATIVE) Urine WBC (Auto) (0-5) /HPF Urine RBC (Auto) (0-2) /HPF U Hyaline Cast (Auto) (0-2) /LPF U Epithel Cells (Auto) (FEW) /HPF Urine Bacteria (Auto) (NEGATIVE) /HPF Urine Mucus (Auto) (NEGATIVE) /HPF Urine Culture Reflexed (NO) Urine Glucose (NEGATIVE) mg/dL 12/23/20 12/23/20 Range/Units 17:30 17:30 WBC 7.4 (4.0-10.5) K/mm3 RBC 3.50 L (4.1-5.4) M/mm3 Hgb 10.2 L (12.0-16.0) gm/dl Hct 34.0 L (35-47) % MCV 97.1 (78-100) fl MCH 29.1 (26-32) pg MCHC 30.0 L (32-36) g/dl RDW 16.5 H (11.5-14.0) % Plt Count 369 (150-450) K/mm3 MPV 11.0 (7.5-11.0) fl Gran % 72.6 H (36.0-66.0) % Eos # (Auto) 0.19 (0-0.5) Absolute Lymphs (auto) 1.21 (1.0-4.6) Absolute Monos (auto) 0.59 (0.0-1.3) Lymphocytes % 16.3 L (24.0-44.0) % Monocytes % 8.0 (0.0-12.0) % Eosinophils % 2.6 (0.00-5.0) % Basophils % 0.5 (0.0-0.4) % Absolute Granulocytes 5.38 (1.4-6.9) Basophils # 0.04 (0-0.4) ESR (0-20) mm/hr Sodium 136 L (137-145) mmol/L Potassium 4.7 (3.5-5.1) mmol/L Chloride 103 (98-107) mmol/L Carbon Dioxide 23 (22-30) mmol/L Anion Gap 14.1 (5-15) MEQ/L BUN 17 (7-17) mg/dL Creatinine 0.78 (0.52-1.04) mg/dL Estimated GFR > 60.0 ML/MIN Glucose 186 H (74-106) mg/dL Lactic Acid (0.4-2.0) Calcium 9.6 (8.4-10.2) mg/dL Total Bilirubin 0.30 (0.2-1.3) mg/dL AST 21 (14-36) U/L ALT 12 (0-35) U/L Alkaline Phosphatase 46 (38-126) U/L Troponin I (0.000-0.034) ng/mL NT-Pro-B Natriuret Pep (0-900) pg/mL Serum Total Protein 6.8 (6.3-8.2) g/dL Albumin 4.1 (3.5-5.0) g/dL Urine Color (YELLOW) Urine Appearance (CLEAR) Urine pH (5-6) Ur Specific [place] (1.005-1.025) Urine Protein (Negative) Urine Ketones (NEGATIVE) Urine Blood (0-5) Lucas/ul Urine Nitrite (NEGATIVE) Urine Bilirubin (NEGATIVE) Urine Urobilinogen (0-1) mg/dL Ur Leukocyte Esterase (NEGATIVE) Urine WBC (Auto) (0-5) /HPF Urine RBC (Auto) (0-2) /HPF U Hyaline Cast (Auto) (0-2) /LPF U Epithel Cells (Auto) (FEW) /HPF Urine Bacteria (Auto) (NEGATIVE) /HPF Urine Mucus (Auto) (NEGATIVE) /HPF Urine Culture Reflexed (NO) Urine Glucose (NEGATIVE) mg/dL - Progress Progress: improved, re-examined Progress Note: 12/23/20 20:[address] Briceno and she feels best to try to get the pt to [place] and with current stable perfusion even POV sufficient. We will explore the options which will require time to coordinate. 12/23/20 21:47 After a great amount of deliberation the pt reported that she would prefer to go home tonight and be driven by friends to [place] [facility] tomorrow for eval and potential furhter Tx if indicated. She is advised that although the flow on CT and by dopler and cap refill still appear adequate , and that no severe infec tion or abscess or nec fasc requiring surgery are seen, these could still be evolving as the source of pain and at any time require emergent intervention, resulting in further delay and potential loss of limb or even . She understands and has the capacity to make this choice. She is on AB, blood thinner, and will observe and return meantime if any changes or pain recurs. 12/23/20 22:00 pt states runs low BP and no symptoms with this. Counseled pt/family regarding: lab results, diagnosis, need for follow-up, rad results - Departure Departure Disposition: Home Clinical Impression: PAD (peripheral artery disease), Cellulitis Condition: Good Critical Care Time: No Referrals: LYNNE SCHNEIDER [NON-STAFF PHY W/O PRIVILEGES] - Instructions: Peripheral Vascular (Arterial) Disease (DC), Cellulitis (Skin Infection), Adult (DC), Diabetic Foot Ulcer (DC) Additional Instructions: proceed to your vascular Dr. hospital as soon as possible to continue treatment of infection , and to adjust the treatment of your vascular disease to optimal while you await new bypass for your leg. There is a risk of loss of the leg, even though circulation is still working at this time; especially since the pain may indicate either increasing infection or progressive loss of circulation. THerefore return meantime if any concerns, increasing pain, numbness, fever, or other concerns.
[2020-12-23] MEDS ORDERED: Hydromorphone 1 mg/ml Injection IV ONE ×2 (17:26→21:59)
[2020-12-23] MEDS ORDERED: Zofran 4 MG/2 ML VIAL IV ONE (17:26)
[2020-12-23] MEDS ORDERED: VANCOMYCIN 1 GRAM/200 ML BAG 1 GM/200 ML PIGGYBACK IV ONE ×2 (17:29→17:50)
[2020-12-23] MEDS ORDERED: Sodium Chloride 0.9% 1000 ML 1,000 ML IV SCH (17:30)
[2020-12-23] MEDS ORDERED: Zofran 4 MG/2 ML VIAL ONE (17:49)
[2020-12-23] MEDS ORDERED: Hydromorphone 1 mg/ml Injection ONE ×2 (17:50→22:03)
[2020-12-23] MEDS ORDERED: Sodium Chloride 0.9% 1000 ML 1,000 ML ONE (17:50)
[2020-12-23 17:55] LABS: Absolute Neutrophil Ct (ANC) 5.38 (1.4-6.9); BASOPHIL % 0.5 % (0.0-0.4); Basophil (Absolute #) 0.04 (0-0.4); Eosinophil % 2.6 % (0.00-5.0); Eosinophil (Absolute #) 0.19 (0-0.5); Hemoglobin 10.2 gm/dl (12.0-16.0); Lymphocyte (Absolute #) 1.21 (1.0-4.6); Lymphocytes % 16.3 % (24.0-44.0); Mean Cell Volume 97.1 fl (78-100); Mean Corpuscular Hemoglobin 29.1 pg (26-32); Monocyte (Absolute #) 0.59 (0.0-1.3); Neutrophil % 72.6 % (36.0-66.0); Platelet Count 369 K/mm3 (150-450); Red Cell Distribution Width 16.5 % (11.5-14.0); White Blood Count 7.4 K/mm3 (4.0-10.5)
[2020-12-23 18:08] LABS: ALBUMIN 4.1 g/dL (3.5-5.0); ALKALINE PHOSPHATASE 46 U/L (38-126); ANION GAP 14.1 MEQ/L (5-15); BLOOD UREA NITROGEN 17 mg/dL (7-17); CHLORIDE 103 mmol/L (98-107); Calcium 9.6 mg/dL (8.4-10.2); Carbon Dioxide 23 mmol/L (22-30); Creatinine 1 0.78 mg/dL (0.52-1.04); EST GLOMERULAR FILTRATION RATE > 60.0 ML/MIN; Glucose 186 mg/dL (74-106); Potassium 4.7 mmol/L (3.5-5.1); SGOT/AST 21 U/L (14-36); SGPT/ALT 12 U/L (0-35); SODIUM 136 mmol/L (137-145); Total Protein 6.8 g/dL (6.3-8.2)
[2020-12-23 19:09] LABS: Appearance SLIGHTLY CLOUDY (CLEAR); Bacteria RARE /HPF (NEGATIVE); Bilirubin NEGATIVE (NEGATIVE); Blood SMALL Ery/ul (0-5); Epithelial Cells FEW /HPF (FEW); Glucose NEGATIVE (NEGATIVE); Ketones NEGATIVE (NEGATIVE); Leukocyte Esterase SMALL (NEGATIVE); Mucus SLIGHT /HPF (NEGATIVE); Nitrite NEGATIVE (NEGATIVE); Protein,Urine Dip NEGATIVE (Negative); Specific Gravity 1.018 (1.005-1.025); Urobilinogen 2 mg/dL (0-1)
[2020-12-23 22:20] VITALS: BP 91/44; PULSE 79; O2SAT 94
--- NOTE | 2020-12-24 08:58 | XRAY ---
Indication: Left lower extremity pain. Necrotizing fasciitis. Femoral artery bypass surgery August 2020. Multiple contiguous axial images obtained through the left lower leg from above the knee to the foot without contrast as ordered. Comparison: None Lack of IV contrast precludes evaluation of the artery/veins. Mild diffuse scattered arteriosclerotic calcifications. There is partial visualization of femoral popliteal bypass graft that appears compressed distally. Also partial visualization stent graft in the distal superficial femoral artery. Lack of contrast precludes further characterization. Entire lower leg demonstrates extensive subcutaneous soft tissue edema. No focal solid/cystic mass, abnormal fluid collection, or subcutaneous emphysema. Distal thigh demonstrates multiple medial subcutaneous vascular clips. No acute fracture, dislocation, or suspicious bony lesions. No large ankle/knee effusion. Incidental small posterior/plantar heel spurs. Impression: 1. Diffuse scattered arteriosclerotic calcifications with partially visualized femoral popliteal bypass graft and superficial femoral artery stent graft as detailed. Lack of IV contrast precludes further characterization. 2. Incidental diffuse lower leg subcutaneous soft tissue edema and small heel spurs. Comment: Preliminary interpretation was made by [facility]. No critical discrepancy.
--- NOTE | 2020-12-24 09:13 | XRAY ---
Indication: Sore foot. Two-dimensional sonogram and color Doppler imaging of the major venous vessels of the left leg was performed. Comparison: None No thrombus seen in the examined deep venous vessels of the left leg including greater saphenous vein. Veins demonstrate normal compressibility. Venous waveforms are normal with and without augmentation. Impression: Left leg negative for DVT. Comment: Preliminary report was given.
--- NOTE | 2020-12-24 09:15 | XRAY ---
Indication: Left lower extremity pain. Necrotizing fasciitis. Femoral artery bypass surgery August 2020. Conventional contrast enhanced CTA left leg runoff was performed using 80 cc Isovue 370 contrast. Two-dimensional sagittal and coronal reformatted images obtained. Additional 3-dimensional reformatted images obtained using a separate workstation. Comparison: None Visualized distal abdominal aorta demonstrates moderate arteriosclerotic disease without aneurysm/dissection. Normal patent branching inferior mesenteric artery with minimal calcifications. Left leg runoff demonstrates patent common iliac artery stent graft. Moderate scattered arteriosclerotic disease seen of the remaining iliac vessels. Distal common femoral artery demonstrates 90-99 % stenosis. [place] common femoral artery including multiple superficial femoral stent grafts are occluded. There is moderate scattered disease in the deep femoral artery without critical stenosis/obstruction. A common femoral to popliteal bypass graft is also occluded. There is reconstitution at the level of the proximal popliteal artery via deep muscular branches. Moderate/significant scattered disease seen in the common femoral artery. Trifurcation vessels demonstrates occlusion in the tibial peroneal trunk. There is reconstitution of the peroneal and anterior tibial arteries midcalf level. Anterior tibial artery is attenuated and occluded by ankle level. Visualized abdomen/pelvis demonstrates left mid renal cortical scarring and diffuse fecal stasis of the visualized colon. Entire lower leg demonstrates extensive subcutaneous soft tissue edema. No focal solid/cystic mass, abnormal fluid collection, or subcutaneous emphysema. Distal thigh demonstrates multiple medial subcutaneous vascular clips. No acute fracture, dislocation, or suspicious bony lesions. No large ankle/knee effusion. Incidental small posterior/plantar heel spurs. Impression: 1. Moderate/significant diffuse scattered arteriosclerotic disease as detailed with occlusion of the [place] common femoral artery and stent grafts. Additional occlusion of femoral popliteal bypass graft and tibial peroneal trunk. Reconstitution midcalf level with one-vessel runoff into the left foot. 2. Incidental diffuse lower leg subcutaneous soft tissue edema, fecal stasis and small heel spurs. Comment: Preliminary interpretation was made by [facility]. No critical discrepancy.
--- NOTE | 2020-12-24 09:15 | XRAY ---
Indication: Elevated blood pressure. CHF. Comparison: August 17, 2019. Portable chest again demonstrates chronic lung markings, CABG surgery, coronary stent grafts, and left-sided AICD. Remaining heart and lungs unremarkable. Bony thorax intact again with mild osteopenia and degenerative changes. Impression: Continued nonacute chest with chronic features.
== END 2020-12-23 22:40 | disposition home or self-care (01) ==
LOC: ED 17:05
DX: M79.662 Pain in left lower leg (principal); I73.9 Peripheral vascular disease, unspecified; L03.116 Cellulitis of left lower limb; M79.675 Pain in left toe(s); I50.9 Heart failure, unspecified; I25.2 Old myocardial infarction; E11.9 Type 2 diabetes mellitus without complications; Z79.899 Other long term (current) drug therapy; F17.210 Nicotine dependence, cigarettes, uncomplicated
CPT/HCPCS: 36000; 36415; 71045; 73700; 73701; 80053; 81001; 83605; 83880; 84484; 85025; 85652; 87070; 87086; 93005; 93971; 96365; 96374; 96375; 96376; 99284; J1170; J2405; J3370